=== PATIENT | female | born 1955 | race African-American/Black ===

== ENCOUNTER 2019-02-17 11:56 | Emergency (ER) | payer MEDICARE, SELFPAY ==
[~2019-02-17] VITALS: Ht 170.2 cm; Wt 67.0 kg
[2019-02-17 11:59] VITALS: BP 137/89
--- NOTE | 2019-02-17 12:09 | NUR ---
FIRST CONTACT WITH PT. PT STATES "I THINK I HAVE AN ABSCESS ON THE BOTTOM OF MY FEET. IT'S BEEN A FEW DAYS. I WALK A LOT!" PT'S AOX4. RESPS EVEN AND UNLABORED. AWAITING ORDERES.
--- NOTE | 2019-02-17 12:34 | NUR ---
PT IN XRAY NOW.
--- NOTE | 2019-02-17 12:41 | NUR ---
PT BACK TO ROOM FROM XRAY.
--- NOTE | 2019-02-17 12:54 | NUR ---
BG 87 AT THIS TIME.
--- NOTE | 2019-02-17 13:16 | NUR ---
PT WOULD LIKE TO HAVE PAIN MED. PA NOTIFIED.
[2019-02-17] MEDS ORDERED: IBUPROFEN 800 MG TABLET ONE (13:30)
[2019-02-17] MEDS ORDERED: IBUPROFEN 800 MG TABLET PO ONE (13:30)
--- NOTE | 2019-02-17 13:32 | NUR ---
PT MEDICATED PER EMAR. PT TOLERATED WELL.
--- NOTE | 2019-02-17 13:39 | NUR ---
Patient given discharge instructions and they have confirmed that they understand the instructions. Patient ambulatory with steady gait.
== END 2019-02-17 13:53 | disposition home or self-care (01) ==
LOC: ED 13:42
DX: S91.331A Puncture wound without foreign body, right foot, initial encounter (principal); F17.200 Nicotine dependence, unspecified, uncomplicated; X58.XXXA Exposure to other specified factors, initial encounter; Y93.89 Activity, other specified; Y92.89 Other specified places as the place of occurrence of the external cause; Y99.8 Other external cause status
CPT/HCPCS: 82962; 99283

== ENCOUNTER 2020-09-09 03:00 | Emergency (ER) | payer OTHER ==
[~2020-09-09] VITALS: Ht 167.6 cm; Wt 84.0 kg
[~2020-09-09 03:00] MED LIST: ACID1TAB7 PO; AMLO-150 PO; AMOX1TAB64 PO; Albuterol-Ipratropium Mdi INH; BENZ-17 PO; BUSP10TA PO; ESCI20TA10 PO; FLUT1BLS INH; QUET200T7 PO; ZOLP5TAB PO
[2020-09-09] MEDS ORDERED: DEXAMETHASONE 4 MG/ML, 5ML ONE (03:24)
[2020-09-09] MEDS ORDERED: ALBUTEROL/IPRATROPIUM 2.5MG/0.5MG, 3 ML ONE ×2 (03:24→03:51)
[2020-09-09] MEDS ORDERED: DEXAMETHASONE 4 MG TABLET ONE (03:25)
[2020-09-09] MEDS ORDERED: ALBUTEROL/IPRATROPIUM 2.5MG/0.5MG, 3 ML NPPB ONE (03:30)
[2020-09-09] MEDS ORDERED: DEXAMETHASONE 4 MG TABLET PO ONE (03:30)
--- NOTE | 2020-09-09 03:32 | NUR ---
pt a&ox4, pleasant and calm and cooperative. pt appears to have shortness of breath, RR 24. Decadron po given and tolerated well, duoneb started and pt able to hold duoneb herself. remains on o2 sat probe and monitoring.
[2020-09-09 03:47] LABS: BASOPHILS % (AUTO) 1 % (0-1); EOSINOPHILS % (AUTO) 4 % (1-7); LYMPHOCYTES % (AUTO) 38 % (22-44); MEAN CORPUSCULAR HEMOGLOBIN 29.4 pg (27.0-34.8); MEAN CORPUSCULAR HGB CONC 33.5 g/dL (32.4-35.8); MEAN PLATELET VOLUME 7.5 fL (7.4-10.4); MONOCYTES % (AUTO) 8 % (2-9); NEUTROPHILS % (AUTO) 49 % (42-75); PLATELET COUNT 351 x10^3/uL (130-400); RED BLOOD COUNT 4.72 x10^6/uL (3.82-5.3); RED CELL DISTRIBUTION WIDTH 14.7 % (9.6-15.2)
[2020-09-09 03:48] LABS: MD NO
[2020-09-09 03:58] LABS: ALBUMIN 3.8 g/dL (3.4-5.0); ANION GAP 8 mmol/L (5-15); CALCIUM 10.5 mg/dL (8.5-10.1); CHLORIDE 106 mmol/L (98-107)
[2020-09-09] MEDS ORDERED: ACETAMINOPHEN 500 MG TABLET PO ONE (04:00)
[2020-09-09 04:02] LABS: TROPONIN I < 0.015 ng/mL (0.000-0.045)
[2020-09-09] MEDS ORDERED: AZITHROMYCIN 500 MG TABLET PO ONE (04:30)
[2020-09-09] MEDS ORDERED: AZITHROMYCIN 250 MG TABLET ONE (04:45)
[2020-09-09] MEDS ORDERED: ACETAMINOPHEN 500 MG TABLET ONE (04:55)
[2020-09-09 04:59] VITALS: BP 146/84
== END 2020-09-09 05:17 | disposition home or self-care (01) ==
LOC: ED 05:00
DX: J44.1 Chronic obstructive pulmonary disease with (acute) exacerbation (principal); Z20.822 Contact with and (suspected) exposure to COVID-19; R06.00 Dyspnea, unspecified; R05 Cough; I10 Essential (primary) hypertension; N28.9 Disorder of kidney and ureter, unspecified
CPT/HCPCS: 36415; 71045; 80048; 82040; 84484; 85025; 87635; 93005; 94640; 99283; 99284